=== PATIENT | female | born 1975 | race Caucasian/White ===

== ENCOUNTER 2018-07-10 14:58 | Emergency (ER) | payer MEDICAID ==
[~2018-07-10] VITALS: Ht 165.1 cm; Wt 103.6 kg
[~2018-07-10 14:58] MED LIST: DIPH25CA61 PO; HYDR-3240 PO; OMEP20TA62 PO; ONDA4TAB7 PO; SUCR1TAB33 PO
[2018-07-10] MEDS ORDERED: OXYcodone/APAP 5/325MG TABLET ONE (15:26)
[2018-07-10] MEDS ORDERED: OXYcodone/APAP 5/325MG TABLET PO ONE (15:30)
[2018-07-10 15:45] LABS: BASOPHILS # (AUTO) 0.05 x10^3/uL (0-0.1); BASOPHILS % (AUTO) 1 % (0-1); EOSINOPHILS # (AUTO) 0.26 x10^3/uL (0-0.4); EOSINOPHILS % (AUTO) 3 % (1-7); LYMPHOCYTES # (AUTO) 3.88 x10^3/uL (1-3.4); LYMPHOCYTES % (AUTO) 42 % (22-44); MD NO; MEAN CORPUSCULAR HEMOGLOBIN 28.6 pg (27.0-34.8); MEAN CORPUSCULAR HGB CONC 33.2 g/dL (32.4-35.8); MEAN CORPUSCULAR VOLUME 86.1 fL (80-100); MEAN PLATELET VOLUME 8.2 fL (7.4-10.4); MONOCYTES # (AUTO) 0.41 x10^3/uL (0.2-0.8); MONOCYTES % (AUTO) 4 % (2-9); NEUTROPHILS # (AUTO) 4.67 x10^3/uL (1.8-6.8); NEUTROPHILS % (AUTO) 50 % (42-75); PLATELET COUNT 358 x10^3/uL (130-400); RED BLOOD COUNT 5.19 x10^6/uL (3.82-5.3); RED CELL DISTRIBUTION WIDTH 14.1 % (9.6-15.2)
[2018-07-10 15:52] LABS: MICROSCOPIC AUTO
[2018-07-10 15:53] LABS: CULTURE INDICATED? YES
[2018-07-10 15:55] LABS: ALANINE AMINOTRANSFERASE 30 U/L (12-78); ALBUMIN 3.7 g/dL (3.4-5.0); ANION GAP 10 mmol/L (5-15); CALCIUM 8.8 mg/dL (8.5-10.1); CHLORIDE 107 mmol/L (98-107); CREATININE 0.85 mg/dL (0.55-1.02)
[2018-07-10 15:57] LABS: ALKALINE PHOSPHATASE 114 U/L (45-117); BILIRUBIN,TOTAL 0.4 mg/dL (0.2-1.0)
[2018-07-10] MEDS ORDERED: ONDANSETRON ODT 4 MG ONE (16:27)
[2018-07-10] MEDS ORDERED: HYDROmorphone 2 MG/ML, 1ML ONE (16:27)
[2018-07-10] MEDS ORDERED: ONDANSETRON ODT 4 MG PO ONE (16:30)
[2018-07-10] MEDS ORDERED: HYDROmorphone 2 MG/ML, 1ML IM ONE (16:30)
[2018-07-10] MEDS ORDERED: MAALOX/HYOSCYAMINE/LIDOCAINE 45 ML BTL ONE (16:59)
[2018-07-10] MEDS ORDERED: MAALOX/HYOSCYAMINE/LIDOCAINE 45 ML BTL PO ONE (17:00)
[2018-07-10 18:14] VITALS: BP 133/78
== END 2018-07-10 18:35 | disposition home or self-care (01) ==
LOC: ED 17:15
DX: R10.32 Left lower quadrant pain (principal); K21.9 Gastro-esophageal reflux disease without esophagitis; Z90.49 Acquired absence of other specified parts of digestive tract
CPT/HCPCS: 36415; 74176; 80053; 81001; 83690; 85025; 87086; 96372; 99285; J1170; Q0162

== ENCOUNTER 2020-11-24 20:31 | Emergency (ER) | payer MEDICAID ==
[~2020-11-24] VITALS: Ht 162.6 cm; Wt 107.9 kg
[~2020-11-24 20:31] MED LIST changes: +HYDR-1067 PO; -HYDR-3240 PO
--- NOTE | 2020-11-24 21:30 | NUR ---
PT C/O BILAT FEET AND HANDS BURNING X3 WEEKS. ELI X3 DAYS, PAIN IN LEFT BACK HEAD, DOWN LEFT NECK AND LEFT SHOULDER. PT CONNECTED TO MONITORING. CALL LIGHT IN REACH. SPOUSE AT BEDSIDE. ERPA AT BEDSIDE FOR ASSESSMENT.
--- NOTE | 2020-11-24 21:57 | NUR ---
PIV PLACED, LAB DRAWN. PT AMBULATED TO RESTROOM WITH STEADY GAIT TO PROVIDE URINE SAMPLE. UA AND LABS SENT TO LAB WITH LAB STICKERS. PT TO CT.
[2020-11-24] MEDS ORDERED: PROMETHAZINE 25 MG/ML, 1ML IM ONE (22:00)
[2020-11-24] MEDS ORDERED: DIPHENHYDRAMINE 50 MG/ML, 1ML IVPush ONE (22:00)
[2020-11-24 22:05] LABS: BASOPHILS % (AUTO) 1 % (0-1); EOSINOPHILS % (AUTO) 2 % (1-7); LYMPHOCYTES % (AUTO) 36 % (22-44); MD NO; MEAN CORPUSCULAR HEMOGLOBIN 29.1 pg (27.0-34.8); MEAN CORPUSCULAR HGB CONC 34.1 g/dL (32.4-35.8); MEAN PLATELET VOLUME 8.3 fL (7.4-10.4); MONOCYTES % (AUTO) 5 % (2-9); NEUTROPHILS % (AUTO) 56 % (42-75); PLATELET COUNT 292 x10^3/uL (130-400); RED BLOOD COUNT 4.98 x10^6/uL (3.82-5.3); RED CELL DISTRIBUTION WIDTH 13.8 % (9.6-15.2)
[2020-11-24 22:07] LABS: MICROSCOPIC INDICATED
[2020-11-24] MEDS ORDERED: DIPHENHYDRAMINE 50 MG/ML, 1ML ONE (22:12)
[2020-11-24] MEDS ORDERED: PROMETHAZINE 25 MG/ML, 1ML ONE (22:12)
[2020-11-24 22:15] LABS: ALANINE AMINOTRANSFERASE 28 U/L (12-78); ALBUMIN 3.5 g/dL (3.4-5.0); ANION GAP 8 mmol/L (5-15); CALCIUM 8.9 mg/dL (8.5-10.1); CHLORIDE 110 mmol/L (98-107); CREATININE 0.67 mg/dL (0.55-1.02)
[2020-11-24 22:18] LABS: ALKALINE PHOSPHATASE 92 U/L (45-117); BILIRUBIN,TOTAL 0.3 mg/dL (0.2-1.0); TOTAL PROTEIN 7.4 g/dL (6.4-8.2)
--- NOTE | 2020-11-24 22:18 | NUR ---
MEDS ADMIN PER OCT.
[2020-11-24] MEDS ORDERED: KETOROLAC 30 MG/1 ML IVPush ONE (22:30)
[2020-11-24] MEDS ORDERED: KETOROLAC 30 MG/1 ML ONE (22:31)
--- NOTE | 2020-11-24 22:45 | NUR ---
REPORT FROM [facility] ASSUMED CARE OF PT AT THIS TIME
--- NOTE | 2020-11-24 23:24 | NUR ---
MEDICATED FOR PAIN AT THIS TIME
[2020-11-24] MEDS ORDERED: KETAMINE 10 MG/ML, 20ML IV STA (23:41)
[2020-11-24] MEDS ORDERED: OMNIPAQUE 350 MG/ML, 100ML BOTTLE ONE (23:46)
[2020-11-24] MEDS ORDERED: KETAMINE 10 MG/ML, 20ML ONE (23:55)
[2020-11-25 00:04] VITALS: BP 119/66
--- NOTE | 2020-11-25 00:04 | NUR ---
MEDICATED PER MAR
== END 2020-11-25 00:57 | disposition home or self-care (01) ==
LOC: ED 23:26
DX: R51.9 Headache, unspecified (principal); R20.8 Other disturbances of skin sensation; K21.9 Gastro-esophageal reflux disease without esophagitis
CPT/HCPCS: 36415; 70450; 80053; 81001; 85025; 96372; 96374; 96375; 99285; J1200; J1885; J2550; Q9967